=== PATIENT | female | born 1995 | race Caucasian/White ===

== ENCOUNTER 2017-04-05 12:54 | Emergency (ER) | payer BC ==
[~2017-04-05] VITALS: Ht 167.6 cm; Wt 82.0 kg
[~2017-04-05 12:54] MED LIST: BACTRIM DS1 TAB PO; BIRTH CONTROL PILL; CIPROFLOXACN500 MG PO; DIFLUCAN150 MG PO; FLAGYL500 MG OR; LORTAB 5-325 MG1 TAB PO; LOTRISONE CREAM15 G1 EX; NO MEDS; ORTHO EVRA TD; SPRINTEC 2828 DAY PO; TERAZOL 30.8 % VA; ULTRAM50 M1 OR; XULANE 150-35 M1 DIS TD; ZITHROMAX250 MG PO
[2017-04-05 13:41] LABS: URINE BILIRUBIN - DIPSTICK NEGATIVE (NEGATIVE); URINE BLOOD DIPSTICK SMALL (NEGATIVE); URINE COLOR YELLOW; URINE GLUCOSE - DIPSTICK NEGATIVE (NEGATIVE); URINE KETONE NEGATIVE (NEGATIVE); URINE LEUK ESTERASE TRACE (NEGATIVE); URINE NITRITE - DIPSTICK NEGATIVE (Negative); URINE PH 5.5 (4.5-8.0); URINE PROTEIN - DIPSTICK NEGATIVE (NEG-TRACE); URINE SPECIFIC GRAVITY >=1.030; URINE UROBILINOGEN - DIPSTICK 0.2 E.U./dL (0.2)
[2017-04-05 13:49] LABS: URINE CLARITY SLIGHT CLOUDY
[2017-04-05 13:50] LABS: URINE BACTERIA FEW hpf; URINE EPITHELIAL CELLS MODERATE EPI/hpf (0-FEW); URINE RBC 0-2 RBC/hpf (0-5); URINE WBC 0-2 WBC/hpf (0-5)
[2017-04-05] MEDS ORDERED: BACTRIM DS1 TAB PO (14:40)
[2017-04-05 14:45] VITALS: BP 129/74
== END 2017-04-05 14:45 | disposition home or self-care (01) | DRG 690 ==
LOC: ED 12:54
PROVIDERS: Emergency Medicine
DX: N39.0 Urinary tract infection, site not specified (principal); B37.3 Candidiasis of vulva and vagina

== ENCOUNTER 2017-04-27 21:37 | Emergency (ER) | payer BC ==
[~2017-04-27] VITALS: Ht 167.6 cm; Wt 86.0 kg
[2017-04-27 22:24] LABS: HEMATOCRIT 42.7 % (37.0-47.0); HEMOGLOBIN 12.9 g/dl (12.0-16.0); IMMATURE GRANULOCYTES 0.4 % (0.0-1.0); MEAN CELL VOLUME 68.8 fL CALC (80.0-100.0); MEAN CORPUSCULAR HGB 20.8 pG CALC (26.0-32.0); MEAN CORPUSCULAR HGB CONC 30.2 g/L CALC (32.0-36.0); NEUT# 4.35 thou/uL (2.00-7.15); RED BLOOD COUNT 6.21 mill/uL (4.20-5.60); RED CELL DISTRI WIDTH 17.4 % (11.5-15.5)
[2017-04-27 22:26] LABS: URINE BLOOD DIPSTICK NEGATIVE (NEGATIVE); URINE CLARITY CLEAR; URINE COLOR YELLOW; URINE GLUCOSE - DIPSTICK NEGATIVE (NEGATIVE); URINE KETONE NEGATIVE (NEGATIVE); URINE LEUK ESTERASE NEGATIVE (NEGATIVE); URINE NITRITE - DIPSTICK NEGATIVE (Negative); URINE PH 5.5 (4.5-8.0); URINE PROTEIN - DIPSTICK NEGATIVE (NEG-TRACE); URINE SPECIFIC GRAVITY >=1.030; URINE UROBILINOGEN - DIPSTICK 0.2 E.U./dL (0.2)
[2017-04-27 22:28] LABS: URINE BILIRUBIN - DIPSTICK NEGATIVE (NEGATIVE)
[2017-04-27 22:30] LABS: BARBITURATES NEGATIVE (NEGATIVE); COCAINE NEGATIVE (NEGATIVE); HCG SERUM/URINE (NEG/POS) NEGATIVE (NEGATIVE); METHADONE NEGATIVE (NEGATIVE); OXCYCODONE NEGATIVE (NEGATIVE); TETRAHYDROCANNABIONOL NEGATIVE (NEGATIVE); TRICYLIC ANTIDEPRESSANTS NEGATIVE (NEGATIVE)
[2017-04-27 23:11] LABS: ALBUMIN 4.1 g/dL (3.2-5.0); ALKALINE PHOSPHATASE 162 u/l (38-126); AMYLASE 61 u/l (30-110); ANION GAP 17 (6-22 (CALC)); BILIRUBIN, TOTAL 0.4 mg/dL (0.0-1.4); BUN 7 mg/dL (7-17); BUN/CREATININE RATIO 12 (12-20 (CALC)); CALCIUM 8.8 mg/dL (8.4-10.2); CARBON DIOXIDE 24 mmol/l (22-30); CHLORIDE 104 mmol/l (95-108); CREATININE 0.6 mg/dL (0.5-1.0); GFR > 60 ML/MIN (>=60 (CALC)); GFR FOR AFR.AMER. > 60 ML/MIN (>=60 (CALC)); GLUCOSE 87 mg/dL (65-105); LIPASE 50 u/l (23-300); POTASSIUM 4.1 mmol/l (3.5-5.1); SGOT/AST 92 u/l (14-36); SGPT/ALT 118 u/l (9-52); SODIUM 141 mmol/l (137-146); TOTAL PROTEIN 7.6 g/dL (6.3-8.2)
[2017-04-28] MEDS ORDERED: ZOFRAN ODT4 MG PO (00:16)
[2017-04-28 00:29] VITALS: BP 127/65
== END 2017-04-28 00:29 | disposition home or self-care (01) | DRG 866 ==
LOC: ED 21:37
PROVIDERS: Emergency Medicine
DX: B27.90 Infectious mononucleosis, unspecified without complication (principal)
CPT/HCPCS: Q9967

== ENCOUNTER 2017-07-15 14:28 | Emergency (ER) | payer BC ==
[~2017-07-15] VITALS: Ht 167.6 cm; Wt 84.1 kg
[~2017-07-15 14:28] MED LIST changes: +ZOFRAN ODT4 MG PO
[2017-07-15] MEDS ORDERED: XULANE 150-35 M1 DIS TOP (14:37)
[2017-07-15 15:22] LABS: URINE BILIRUBIN - DIPSTICK NEGATIVE (NEGATIVE); URINE BLOOD DIPSTICK TRACE-INTACT (NEGATIVE); URINE CLARITY CLEAR; URINE COLOR YELLOW; URINE GLUCOSE - DIPSTICK NEGATIVE (NEGATIVE); URINE KETONE TRACE mg/dL (NEGATIVE); URINE LEUK ESTERASE TRACE (NEGATIVE); URINE NITRITE - DIPSTICK NEGATIVE (Negative); URINE PH 6.5 (4.5-8.0); URINE PROTEIN - DIPSTICK TRACE mg/dL (NEG-TRACE); URINE UROBILINOGEN - DIPSTICK 0.2 E.U./dL (0.2)
[2017-07-15 15:39] LABS: HEMATOCRIT 37.6 % (37.0-47.0); HEMOGLOBIN 11.5 g/dl (12.0-16.0); IMMATURE GRANULOCYTES 0.4 % (0.0-1.0); MEAN CELL VOLUME 67.3 fL CALC (80.0-100.0); MEAN CORPUSCULAR HGB 20.6 pG CALC (26.0-32.0); MEAN CORPUSCULAR HGB CONC 30.6 g/L CALC (32.0-36.0); NEUT# 5.9 thou/uL (2.00-7.15); RED BLOOD COUNT 5.59 mill/uL (4.20-5.60); RED CELL DISTRI WIDTH 15.2 % (11.5-15.5)
[2017-07-15 16:28] LABS: ALKALINE PHOSPHATASE 75 u/l (38-126); AMYLASE 56 u/l (30-110); ANION GAP 14 (6-22 (CALC)); BILIRUBIN, TOTAL 0.3 mg/dL (0.0-1.4); BUN 10 mg/dL (7-17); BUN/CREATININE RATIO 17 (12-20 (CALC)); CARBON DIOXIDE 26 mmol/l (22-30); CHLORIDE 105 mmol/l (95-108); CREATININE 0.6 mg/dL (0.5-1.0); GFR > 60 ML/MIN (>=60 (CALC)); GFR FOR AFR.AMER. > 60 ML/MIN (>=60 (CALC)); GLUCOSE 93 mg/dL (65-105); LIPASE 56 u/l (23-300); POTASSIUM 4.2 mmol/l (3.5-5.1); SGOT/AST 19 u/l (14-36); SGPT/ALT 31 u/l (9-52); SODIUM 140 mmol/l (137-146); TOTAL PROTEIN 7.1 g/dL (6.3-8.2)
[2017-07-15] MEDS ORDERED: BACTRIM DS1 TAB PO (18:00)
[2017-07-15] MEDS ORDERED: TRAMADOL HYDROC50 MG PO (18:00)
[2017-07-15 18:23] VITALS: BP 119/60
== END 2017-07-15 18:29 | disposition home or self-care (01) | DRG 392 ==
LOC: ED 14:28
PROVIDERS: Emergency Medicine
DX: R10.11 Right upper quadrant pain (principal)
CPT/HCPCS: Q9967

== ENCOUNTER 2017-09-24 19:15 | Emergency (ER) | payer BC ==
[~2017-09-24] VITALS: Ht 167.6 cm; Wt 85.8 kg
[~2017-09-24 19:15] MED LIST changes: +TRAMADOL HYDROC50 MG PO; +XULANE 150-35 M1 DIS TOP
[2017-09-24 20:54] LABS: URINE BILIRUBIN - DIPSTICK NEGATIVE (NEGATIVE); URINE BLOOD DIPSTICK TRACE-INTACT (NEGATIVE); URINE COLOR YELLOW; URINE GLUCOSE - DIPSTICK NEGATIVE (NEGATIVE); URINE KETONE NEGATIVE (NEGATIVE); URINE LEUK ESTERASE NEGATIVE (NEGATIVE); URINE NITRITE - DIPSTICK NEGATIVE (Negative); URINE PH 5.5 (4.5-8.0); URINE PROTEIN - DIPSTICK NEGATIVE (NEG-TRACE); URINE SPECIFIC GRAVITY >=1.030; URINE UROBILINOGEN - DIPSTICK 0.2 E.U./dL (0.2)
[2017-09-24 20:55] LABS: URINE CLARITY CLEAR
[2017-09-24 21:23] VITALS: BP 146/86
== END 2017-09-24 21:20 | disposition home or self-care (01) | DRG 761 ==
LOC: ED 19:15
PROVIDERS: Emergency Medicine
DX: N94.6 Dysmenorrhea, unspecified (principal); R10.30 Lower abdominal pain, unspecified; R11.2 Nausea with vomiting, unspecified

== ENCOUNTER 2018-06-02 17:45 | Emergency (ER) | payer BC ==
[~2018-06-02] VITALS: Ht 167.6 cm; Wt 85.0 kg
[2018-06-02] MEDS ORDERED: ZESTRIL10 M1 PO (17:53)
[2018-06-02 18:12] LABS: URINE BILIRUBIN - DIPSTICK NEGATIVE (NEGATIVE); URINE BLOOD DIPSTICK TRACE-INTACT (NEGATIVE); URINE COLOR YELLOW; URINE GLUCOSE - DIPSTICK NEGATIVE (NEGATIVE); URINE KETONE NEGATIVE (NEGATIVE); URINE LEUK ESTERASE NEGATIVE (NEGATIVE); URINE NITRITE - DIPSTICK NEGATIVE (Negative); URINE PROTEIN - DIPSTICK NEGATIVE (NEG-TRACE); URINE SPECIFIC GRAVITY <=1.005; URINE UROBILINOGEN - DIPSTICK 0.2 E.U./dL (0.2)
[2018-06-02 18:13] LABS: URINE CLARITY CLEAR
[2018-06-02 18:52] LABS: HEMATOCRIT 38.3 % (37.0-47.0); HEMOGLOBIN 11.8 g/dl (12.0-16.0); IMMATURE GRANULOCYTES 0.4 % (0.0-5.0); MEAN CELL VOLUME 67.1 fL CALC (80.0-100.0); MEAN CORPUSCULAR HGB 20.7 pG CALC (26.0-32.0); MEAN CORPUSCULAR HGB CONC 30.8 g/L CALC (32.0-36.0); NEUT# 8.79 thou/uL (2.00-7.15); RED BLOOD COUNT 5.71 mill/uL (4.20-5.60); RED CELL DISTRI WIDTH 15.9 % (11.5-15.5)
[2018-06-02 19:08] LABS: ALBUMIN 4.2 g/dL (3.2-5.0); ALKALINE PHOSPHATASE 76 u/l (38-126); ANION GAP 15 (6-22 (CALC)); BILIRUBIN, TOTAL 0.3 mg/dL (0.0-1.4); BUN 7 mg/dL (7-17); BUN/CREATININE RATIO 16 (12-20 (CALC)); CARBON DIOXIDE 22 mmol/l (22-30); CHLORIDE 106 mmol/l (95-108); CREATININE 0.4 mg/dL (0.5-1.0); GFR > 60 ML/MIN (>=60 (CALC)); GFR FOR AFR.AMER. > 60 ML/MIN (>=60 (CALC)); SGOT/AST 19 u/l (14-36); SGPT/ALT 27 u/l (9-52); SODIUM 139 mmol/l (137-146); TOTAL PROTEIN 7.3 g/dL (6.3-8.2)
[2018-06-02] MEDS ORDERED: TRAMADOL HCL50 MG PO (22:50)
[2018-06-02] MEDS ORDERED: VOLTAREN - GENE75 MG PO (22:50)
[2018-06-02 23:10] VITALS: BP 118/68
== END 2018-06-02 23:10 | disposition home or self-care (01) | DRG 761 ==
LOC: ED 17:45
PROVIDERS: Emergency Medicine; Family Medicine
DX: N83.201 Unspecified ovarian cyst, right side (principal); S39.012A Strain of muscle, fascia and tendon of lower back, initial encounter; R10.31 Right lower quadrant pain; R30.0 Dysuria; R39.15 Urgency of urination
CPT/HCPCS: Q9967

== ENCOUNTER 2022-04-30 08:35 | Emergency (ER) | payer OTHER ==
[~2022-04-30] VITALS: Ht 167.6 cm; Wt 88.6 kg
[~2022-04-30 08:35] MED LIST changes: +TRAMADOL HCL50 MG PO; +VOLTAREN - GENE75 MG PO; +ZESTRIL10 M1 PO
[2022-04-30 08:45] VITALS: BP 178/100
[2022-04-30 08:48] VITALS: BP 154/99
[2022-04-30] MEDS ORDERED: TERBINAFINE1 % EX ×2 (08:49→09:11)
[2022-04-30] MEDS ORDERED: CARDIZEM60 MG PO (08:55)
[2022-04-30 09:00] VITALS: BP 153/99
[2022-04-30 09:16] VITALS: BP 131/90
== END 2022-04-30 09:19 | disposition home or self-care (01) ==
LOC: ED 08:35
DX: B35.9 Dermatophytosis, unspecified (principal); I10 Essential (primary) hypertension; D56.9 Thalassemia, unspecified

== ENCOUNTER 2022-05-13 13:49 | Emergency (ER) | payer OTHER ==
[~2022-05-13] VITALS: Ht 167.6 cm; Wt 86.3 kg
[~2022-05-13 13:49] MED LIST changes: +CARDIZEM60 MG PO; +TERBINAFINE1 % EX
[2022-05-13 14:04] VITALS: BP 148/92
[2022-05-13 14:15] VITALS: BP 125/89
[2022-05-13 14:15] LABS: URINE BILIRUBIN - DIPSTICK NEGATIVE (NEGATIVE); URINE BLOOD DIPSTICK SMALL (NEGATIVE); URINE COLOR YELLOW; URINE GLUCOSE - DIPSTICK NEGATIVE (NEGATIVE); URINE KETONE NEGATIVE (NEGATIVE); URINE LEUK ESTERASE TRACE (NEGATIVE); URINE PROTEIN - DIPSTICK NEGATIVE (NEG-TRACE); URINE UROBILINOGEN - DIPSTICK 0.2 E.U./dL (0.2)
[2022-05-13 14:16] LABS: URINE NITRITE - DIPSTICK NEGATIVE (Negative)
[2022-05-13 14:28] LABS: URINE SQUAMOUS EPITHELIAL CELL FEW EPI/hpf (0-FEW); URINE WBC 0-2 WBC/hpf (0-5)
[2022-05-13 14:30] VITALS: BP 122/80
[2022-05-13] MEDS ORDERED: MUPIROCIN2 % EX (14:42)
[2022-05-13] MEDS ORDERED: AMOX/K CLAV875 M1 PO (14:42)
[2022-05-13 14:45] VITALS: BP 124/85
[2022-05-13 15:00] VITALS: BP 131/81
[2022-05-13 15:01] VITALS: BP 131/81
== END 2022-05-13 15:21 | disposition home or self-care (01) ==
LOC: ED 13:49
PROVIDERS: Nurse Practitioner
DX: R30.0 Dysuria (principal); R04.0 Epistaxis; R59.0 Localized enlarged lymph nodes; I10 Essential (primary) hypertension; D56.9 Thalassemia, unspecified

== ENCOUNTER 2022-05-22 08:22 | Emergency (ER) | payer OTHER ==
[~2022-05-22] VITALS: Ht 167.6 cm; Wt 88.6 kg
[~2022-05-22 08:22] MED LIST changes: +AMOX/K CLAV875 M1 PO; +MUPIROCIN2 % EX
[2022-05-22 08:31] VITALS: BP 152/101
[2022-05-22 08:46] VITALS: BP 151/87
[2022-05-22] MEDS ORDERED: DIFLUCAN150 MG PO (08:51)
[2022-05-22 09:00] VITALS: BP 147/84
[2022-05-22 09:01] LABS: URINE BILIRUBIN - DIPSTICK NEGATIVE (NEGATIVE); URINE BLOOD DIPSTICK LARGE (NEGATIVE); URINE COLOR RED; URINE GLUCOSE - DIPSTICK NEGATIVE (NEGATIVE); URINE KETONE NEGATIVE (NEGATIVE); URINE LEUK ESTERASE NEGATIVE (NEGATIVE); URINE NITRITE - DIPSTICK NEGATIVE (Negative); URINE PH 5.5 (4.5-8.0); URINE PROTEIN - DIPSTICK TRACE mg/dL (NEG-TRACE); URINE SPECIFIC GRAVITY >=1.030; URINE UROBILINOGEN - DIPSTICK 0.2 E.U./dL (0.2)
[2022-05-22 09:02] LABS: URINE RBC >100 RBC/hpf (0-5); URINE SQUAMOUS EPITHELIAL CELL FEW EPI/hpf (0-FEW); URINE WBC 0-2 WBC/hpf (0-5)
[2022-05-22 09:15] VITALS: BP 152/98
== END 2022-05-22 09:24 | disposition home or self-care (01) ==
LOC: ED 08:22
PROVIDERS: Family Medicine
DX: N89.8 Other specified noninflammatory disorders of vagina (principal); I10 Essential (primary) hypertension; K76.0 Fatty (change of) liver, not elsewhere classified

== ENCOUNTER 2022-06-12 02:42 | Emergency (ER) | payer OTHER ==
[~2022-06-12] VITALS: Ht 167.6 cm; Wt 88.6 kg
[2022-06-12 02:50] VITALS: BP 152/95
[2022-06-12 02:52] VITALS: BP 153/92
[2022-06-12 03:00] VITALS: BP 144/91
[2022-06-12] MEDS ORDERED: PAXLOVID PO (03:28)
[2022-06-12 03:30] VITALS: BP 138/79
[2022-06-12 03:51] VITALS: BP 138/79
== END 2022-06-12 03:45 | disposition home or self-care (01) ==
LOC: ED 02:42
DX: U07.1 COVID-19 (principal); R50.9 Fever, unspecified; R52 Pain, unspecified; I10 Essential (primary) hypertension

== ENCOUNTER 2022-07-22 08:51 | Emergency (ER) | payer OTHER ==
[~2022-07-22] VITALS: Ht 167.6 cm; Wt 88.6 kg
[2022-07-22] VITALS (8 sets, daily range): BP systolic 130–145; BP diastolic 86–95
[~2022-07-22 08:51] MED LIST changes: +PAXLOVID PO
[2022-07-22 09:36] LABS: HEMATOCRIT 39.7 % (37.0-47.0); HEMOGLOBIN 12.3 g/dl (12.0-16.0); IMMATURE GRANULOCYTES 0.3 % (0.0-5.0); MEAN CELL VOLUME 66.6 fL CALC (80.0-100.0); MEAN CORPUSCULAR HGB 20.6 pG CALC (26.0-32.0); NEUT# 7.71 thou/uL (2.00-7.15); RED BLOOD COUNT 5.96 mill/uL (4.20-5.60); RED CELL DISTRI WIDTH 16.3 % (11.5-15.5)
[2022-07-22 09:39] LABS: ALBUMIN 4.4 g/dL (3.2-5.0); ALKALINE PHOSPHATASE 85 u/l (38-126); AMYLASE 76 u/l (30-110); ANION GAP 16 (6-22 (CALC)); BUN 7 mg/dL (7-17); BUN/CREATININE RATIO 12 (12-20 (CALC)); CARBON DIOXIDE 24 mmol/l (22-30); CHLORIDE 102 mmol/l (95-108); CREATININE 0.6 mg/dL (0.5-1.0); GFR FOR AFR.AMER. > 60 ML/MIN (>=60 (CALC)); GFR OTHER RACES > 60 ML/MIN (>=60 (CALC)); LIPASE 47 u/l (23-300); POTASSIUM 3.7 mmol/l (3.5-5.1); SGOT/AST 23 u/l (14-36); SODIUM 138 mmol/l (137-146)
[2022-07-22 09:47] LABS: URINE BILIRUBIN - DIPSTICK NEGATIVE (NEGATIVE); URINE BLOOD DIPSTICK SMALL (NEGATIVE); URINE COLOR YELLOW; URINE GLUCOSE - DIPSTICK NEGATIVE (NEGATIVE); URINE KETONE NEGATIVE (NEGATIVE); URINE LEUK ESTERASE NEGATIVE (NEGATIVE); URINE PROTEIN - DIPSTICK NEGATIVE (NEG-TRACE); URINE SPECIFIC GRAVITY 1.025; URINE UROBILINOGEN - DIPSTICK 0.2 E.U./dL (0.2)
[2022-07-22 09:54] LABS: BILIRUBIN, TOTAL 0.4 mg/dL (0.0-1.4)
[2022-07-22 09:55] LABS: URINE NITRITE - DIPSTICK NEGATIVE (Negative)
[2022-07-22 10:01] LABS: URINE RBC 0-2 RBC/hpf (0-5)
[2022-07-22 10:02] LABS: URINE BACTERIA MODERATE hpf; URINE MUCUS FEW hpf (NONE-FEW); URINE SQUAMOUS EPITHELIAL CELL MODERATE EPI/hpf (0-FEW)
[2022-07-22] MEDS ORDERED: MIRALAX17 GM PO (12:45)
[2022-07-22] MEDS ORDERED: CEPHALEXIN500 MG PO (12:45)
== END 2022-07-22 13:12 | disposition home or self-care (01) ==
LOC: ED 08:51
PROVIDERS: Emergency Medicine
DX: N39.0 Urinary tract infection, site not specified (principal); M51.9 Unspecified thoracic, thoracolumbar and lumbosacral intervertebral disc disorder; K59.00 Constipation, unspecified; I10 Essential (primary) hypertension; K76.0 Fatty (change of) liver, not elsewhere classified; Z87.440 Personal history of urinary (tract) infections
CPT/HCPCS: Q9967

== ENCOUNTER 2022-08-06 13:50 | Emergency (ER) | payer OTHER ==
[~2022-08-06] VITALS: Ht 167.6 cm; Wt 88.0 kg
[2022-08-06] VITALS (15 sets, daily range): BP systolic 118–154; BP diastolic 68–93
[~2022-08-06 13:50] MED LIST changes: +CEPHALEXIN500 MG PO; +MIRALAX17 GM PO
[2022-08-06 14:33] LABS: HEMATOCRIT 41.2 % (37.0-47.0); HEMOGLOBIN 12.8 g/dl (12.0-16.0); IMMATURE GRANULOCYTES 0.1 % (0.0-5.0); MEAN CORPUSCULAR HGB 20.8 pG CALC (26.0-32.0); MEAN CORPUSCULAR HGB CONC 31.1 g/dL CAL (32.0-36.0); NEUT# 8.85 thou/uL (2.00-7.15); RED BLOOD COUNT 6.15 mill/uL (4.20-5.60)
[2022-08-06 14:58] LABS: ALBUMIN 4.6 g/dL (3.2-5.0); ALKALINE PHOSPHATASE 86 u/l (38-126); ANION GAP 17 (6-22 (CALC)); BUN 11 mg/dL (7-17); BUN/CREATININE RATIO 17 (12-20 (CALC)); CARBON DIOXIDE 22 mmol/l (22-30); CHLORIDE 104 mmol/l (95-108); CREATININE 0.6 mg/dL (0.5-1.0); GFR FOR AFR.AMER. > 60 ML/MIN (>=60 (CALC)); GFR OTHER RACES > 60 ML/MIN (>=60 (CALC)); LIPASE 45 u/l (23-300); POTASSIUM 3.8 mmol/l (3.5-5.1); SGOT/AST 35 u/l (14-36); SODIUM 139 mmol/l (137-146); TOTAL PROTEIN 8.1 g/dL (6.3-8.2)
[2022-08-06 15:02] LABS: BILIRUBIN, TOTAL 0.7 mg/dL (0.0-1.4)
[2022-08-06 17:02] LABS: URINE BILIRUBIN - DIPSTICK NEGATIVE (NEGATIVE); URINE BLOOD DIPSTICK TRACE-INTACT (NEGATIVE); URINE COLOR YELLOW; URINE GLUCOSE - DIPSTICK NEGATIVE (NEGATIVE); URINE KETONE 15 mg/dL (NEGATIVE); URINE LEUK ESTERASE NEGATIVE (NEGATIVE); URINE PROTEIN - DIPSTICK NEGATIVE (NEG-TRACE); URINE SPECIFIC GRAVITY <=1.005; URINE UROBILINOGEN - DIPSTICK 0.2 E.U./dL (0.2)
[2022-08-06 17:05] LABS: URINE NITRITE - DIPSTICK NEGATIVE (Negative)
[2022-08-06] MEDS ORDERED: ONDANSETRON4 MG PO (17:34)
[2022-08-06] MEDS ORDERED: NAPROXEN500 MG PO (17:34)
[2022-08-06] MEDS ORDERED: ULTRAM50 M1 PO (17:34)
== END 2022-08-06 17:50 | disposition home or self-care (01) ==
LOC: ED 13:50
PROVIDERS: Family Medicine
DX: R10.84 Generalized abdominal pain (principal); I10 Essential (primary) hypertension; K76.0 Fatty (change of) liver, not elsewhere classified
CPT/HCPCS: Q9967

== ENCOUNTER 2022-09-20 12:31 | Emergency (ER) | payer OTHER ==
[~2022-09-20] VITALS: Ht 167.6 cm; Wt 88.4 kg
[~2022-09-20 12:31] MED LIST changes: +NAPROXEN500 MG PO; +ONDANSETRON4 MG PO; +ULTRAM50 M1 PO
[2022-09-20 12:36] VITALS: BP 150/92
[2022-09-20 12:52] VITALS: BP 143/90
[2022-09-20 13:00] VITALS: BP 132/84
[2022-09-20 13:20] LABS: HEMATOCRIT 39.6 % (37.0-47.0); HEMOGLOBIN 12.2 g/dl (12.0-16.0); IMMATURE GRANULOCYTES 0.1 % (0.0-5.0); MEAN CORPUSCULAR HGB 20.6 pG CALC (26.0-32.0); MEAN CORPUSCULAR HGB CONC 30.8 g/dL CAL (32.0-36.0); NEUT# 7.99 thou/uL (2.00-7.15); RED BLOOD COUNT 5.91 mill/uL (4.20-5.60); RED CELL DISTRI WIDTH 16.3 % (11.5-15.5)
[2022-09-20 13:24] LABS: URINE BILIRUBIN - DIPSTICK NEGATIVE (NEGATIVE); URINE BLOOD DIPSTICK MODERATE (NEGATIVE); URINE COLOR YELLOW; URINE GLUCOSE - DIPSTICK NEGATIVE (NEGATIVE); URINE KETONE NEGATIVE (NEGATIVE); URINE LEUK ESTERASE TRACE (NEGATIVE); URINE NITRITE - DIPSTICK NEGATIVE (Negative); URINE PROTEIN - DIPSTICK NEGATIVE (NEG-TRACE); URINE SPECIFIC GRAVITY 1.025; URINE UROBILINOGEN - DIPSTICK 0.2 E.U./dL (0.2)
[2022-09-20 13:25] LABS: ALBUMIN 4.4 g/dL (3.2-5.0); ALKALINE PHOSPHATASE 77 u/l (38-126); ANION GAP 10 (6-22 (CALC)); BILIRUBIN, TOTAL 0.3 mg/dL (0.0-1.4); BUN 10 mg/dL (7-17); BUN/CREATININE RATIO 14 (12-20 (CALC)); CARBON DIOXIDE 28 mmol/l (22-30); CHLORIDE 105 mmol/l (95-108); CREATININE 0.7 mg/dL (0.5-1.0); GFR FOR AFR.AMER. > 60 ML/MIN (>=60 (CALC)); GFR OTHER RACES > 60 ML/MIN (>=60 (CALC)); POTASSIUM 3.7 mmol/l (3.5-5.1); SGOT/AST 29 u/l (14-36); SODIUM 139 mmol/l (137-146); TOTAL PROTEIN 7.8 g/dL (6.3-8.2)
[2022-09-20 13:33] LABS: URINE BACTERIA FEW hpf; URINE SQUAMOUS EPITHELIAL CELL FEW EPI/hpf (0-FEW)
[2022-09-20] MEDS ORDERED: OMNI-PAC300 MG PO (13:49)
[2022-09-20] MEDS ORDERED: FLEXERIL5 M1 PO (13:49)
[2022-09-20 14:04] VITALS: BP 132/84
== END 2022-09-20 14:15 | disposition home or self-care (01) ==
LOC: ED 12:31
PROVIDERS: Family Medicine
DX: N39.0 Urinary tract infection, site not specified (principal); I10 Essential (primary) hypertension; K76.0 Fatty (change of) liver, not elsewhere classified

== ENCOUNTER 2022-10-03 08:40 | Emergency (ER) | payer OTHER ==
[~2022-10-03] VITALS: Ht 167.6 cm; Wt 85.0 kg
[~2022-10-03 08:40] MED LIST changes: +FLEXERIL5 M1 PO; +OMNI-PAC300 MG PO
[2022-10-03 08:46] VITALS: BP 144/88
[2022-10-03] MEDS ORDERED: DIFLUCAN150 MG PO (09:02)
[2022-10-03 09:06] VITALS: BP 144/88
== END 2022-10-03 09:14 | disposition home or self-care (01) ==
LOC: ED 08:40
DX: B37.31 Acute candidiasis of vulva and vagina (principal); I10 Essential (primary) hypertension; K76.0 Fatty (change of) liver, not elsewhere classified

== ENCOUNTER 2022-10-17 14:54 | Emergency (ER) | payer OTHER ==
[2022-10-17] VITALS (10 sets, daily range): BP systolic 133–160; BP diastolic 74–93
[~2022-10-17] VITALS: Ht 167.6 cm; Wt 86.1 kg
[2022-10-17 19:01] LABS: HEMATOCRIT 39.4 % (37.0-47.0); HEMOGLOBIN 12.4 g/dl (12.0-16.0); IMMATURE GRANULOCYTES 0.1 % (0.0-5.0); MEAN CELL VOLUME 67.4 fL CALC (80.0-100.0); MEAN CORPUSCULAR HGB 21.2 pG CALC (26.0-32.0); MEAN CORPUSCULAR HGB CONC 31.5 g/dL CAL (32.0-36.0); NEUT# 4.59 thou/uL (2.00-7.15); RED BLOOD COUNT 5.85 mill/uL (4.20-5.60); RED CELL DISTRI WIDTH 16.6 % (11.5-15.5)
[2022-10-17 19:14] LABS: ALBUMIN 4.4 g/dL (3.2-5.0); ALKALINE PHOSPHATASE 91 u/l (38-126); ANION GAP 12 (6-22 (CALC)); BILIRUBIN, TOTAL 0.2 mg/dL (0.0-1.4); BUN 4 mg/dL (7-17); BUN/CREATININE RATIO 8 (12-20 (CALC)); CARBON DIOXIDE 24 mmol/l (22-30); CHLORIDE 109 mmol/l (95-108); CPK 39 u/l (30-165); CREATININE 0.6 mg/dL (0.5-1.0); GFR FOR AFR.AMER. > 60 ML/MIN (>=60 (CALC)); GFR OTHER RACES > 60 ML/MIN (>=60 (CALC)); POTASSIUM 3.8 mmol/l (3.5-5.1); SGOT/AST 25 u/l (14-36); SODIUM 141 mmol/l (137-146); TOTAL PROTEIN 7.6 g/dL (6.3-8.2)
[2022-10-17] MEDS ORDERED: VOLTAREN75 MG PO (21:17)
== END 2022-10-17 21:59 | disposition home or self-care (01) ==
LOC: ED 14:54
PROVIDERS: Family Medicine
DX: M54.12 Radiculopathy, cervical region (principal); M25.512 Pain in left shoulder; I10 Essential (primary) hypertension; K76.0 Fatty (change of) liver, not elsewhere classified

== ENCOUNTER 2022-11-18 07:30 | Day surgery (SDC) | payer OTHER ==
[~2022-11-18 07:30] MED LIST changes: +VOLTAREN75 MG PO
[2022-11-18 10:19] VITALS: BP 133/83
== END 2022-11-18 10:30 | disposition home or self-care (01) ==
LOC: ORM 07:30
PROVIDERS: ATTEND Physical Medicine & Rehabilitation
DX: M54.16 Radiculopathy, lumbar region (principal); M51.26 Other intervertebral disc displacement, lumbar region; Z01.818 Encounter for other preprocedural examination; Z11.52 Encounter for screening for COVID-19
CPT/HCPCS: J1100; Q9967

== ENCOUNTER 2023-01-09 10:42 | Emergency (ER) | payer OTHER ==
[2023-01-09] VITALS (7 sets, daily range): BP systolic 126–146; BP diastolic 72–89
[~2023-01-09] VITALS: Ht 167.6 cm; Wt 85.2 kg
[2023-01-09 11:20] LABS: URINE BILIRUBIN - DIPSTICK NEGATIVE (NEGATIVE); URINE BLOOD DIPSTICK MODERATE (NEGATIVE); URINE COLOR YELLOW; URINE GLUCOSE - DIPSTICK NEGATIVE (NEGATIVE); URINE KETONE NEGATIVE (NEGATIVE); URINE LEUK ESTERASE TRACE (NEGATIVE); URINE PROTEIN - DIPSTICK NEGATIVE (NEG-TRACE); URINE SPECIFIC GRAVITY >=1.030; URINE UROBILINOGEN - DIPSTICK 0.2 E.U./dL (0.2)
[2023-01-09 11:23] LABS: URINE NITRITE - DIPSTICK NEGATIVE (Negative)
[2023-01-09 11:25] LABS: HCG SERUM/URINE (NEG/POS) NEGATIVE (NEGATIVE)
[2023-01-09 11:33] LABS: URINE BACTERIA FEW hpf; URINE SQUAMOUS EPITHELIAL CELL FEW EPI/hpf (0-FEW)
[2023-01-09 11:56] LABS: BASO% 0.3 % (0-3); EOS% 0.5 % (0-8); HEMATOCRIT 38.8 % (37.0-47.0); HEMOGLOBIN 11.9 g/dl (12.0-16.0); IMMATURE GRANULOCYTES 0.2 % (0.0-5.0); LYMPH% 21.5 % (15-41); MEAN CELL VOLUME 67.5 fL CALC (80.0-100.0); MEAN CORPUSCULAR HGB 20.7 pG CALC (26.0-32.0); MEAN CORPUSCULAR HGB CONC 30.7 g/dL CAL (32.0-36.0); MONO% 4.1 % (2-13); NEUT# 6.95 thou/uL (2.00-7.15); NEUT% 73.4 % (42-76); RED BLOOD COUNT 5.75 mill/uL (4.20-5.60); RED CELL DISTRI WIDTH 15.4 % (11.5-15.5)
[2023-01-09 12:10] LABS: ALBUMIN 4.1 g/dL (3.2-5.0); ALKALINE PHOSPHATASE 73 u/l (38-126); ANION GAP 11 (6-22 (CALC)); BILIRUBIN, TOTAL 0.2 mg/dL (0.02-1.3); BUN 12 mg/dL (7-17); BUN/CREATININE RATIO 18 (12-20 (CALC)); CARBON DIOXIDE 25 mmol/l (22-30); CHLORIDE 106 mmol/l (95-108); CREATININE 0.7 mg/dL (0.5-1.0); GFR FOR AFR.AMER. > 60 ML/MIN (>=60 (CALC)); GFR OTHER RACES > 60 ML/MIN (>=60 (CALC)); SGOT/AST 25 u/l (14-36); SODIUM 138 mmol/l (137-146); TOTAL PROTEIN 7.1 g/dL (6.3-8.2)
[2023-01-09] MEDS ORDERED: LEVSIN0.125 M1 PO (13:16)
[2023-01-09] MEDS ORDERED: OMNICEF300 M1 PO (13:16)
[2023-01-09] MEDS ORDERED: ZOFRAN4 MG/TAB PO (13:16)
[2023-01-09] MEDS ORDERED: DIFLUCAN150 MG PO (13:16)
== END 2023-01-09 13:37 | disposition home or self-care (01) ==
LOC: ED 10:42
PROVIDERS: Family Medicine
DX: R10.84 Generalized abdominal pain (principal); R31.9 Hematuria, unspecified; I10 Essential (primary) hypertension; D56.9 Thalassemia, unspecified; K76.0 Fatty (change of) liver, not elsewhere classified; Z20.822 Contact with and (suspected) exposure to COVID-19

== ENCOUNTER 2023-01-20 21:22 | Emergency (ER) | payer OTHER ==
[~2023-01-20] VITALS: Ht 167.6 cm; Wt 80.7 kg
[~2023-01-20 21:22] MED LIST changes: +LEVSIN0.125 M1 PO; +OMNICEF300 M1 PO; +ZOFRAN4 MG/TAB PO
[2023-01-20 23:32] LABS: URINE BILIRUBIN - DIPSTICK NEGATIVE (NEGATIVE); URINE BLOOD DIPSTICK MODERATE (NEGATIVE); URINE COLOR YELLOW; URINE GLUCOSE - DIPSTICK NEGATIVE (NEGATIVE); URINE KETONE 15 mg/dL (NEGATIVE); URINE LEUK ESTERASE NEGATIVE (NEGATIVE); URINE PH 5.5 (4.5-8.0); URINE PROTEIN - DIPSTICK TRACE mg/dL (NEG-TRACE); URINE SPECIFIC GRAVITY >=1.030; URINE UROBILINOGEN - DIPSTICK 0.2 E.U./dL (0.2)
[2023-01-20 23:33] LABS: URINE NITRITE - DIPSTICK NEGATIVE (Negative)
[2023-01-20 23:49] LABS: URINE CALCIUM OXALATE CRYSTALS MODERATE lpf; URINE SQUAMOUS EPITHELIAL CELL FEW EPI/hpf (0-FEW)
[2023-01-21 00:35] VITALS: BP 128/78
== END 2023-01-21 00:35 | disposition home or self-care (01) ==
LOC: ED 21:22
PROVIDERS: Family Medicine
DX: S00.11XA Contusion of right eyelid and periocular area, initial encounter (principal); S63.610A Unspecified sprain of right index finger, initial encounter; S60.410A Abrasion of right index finger, initial encounter; I10 Essential (primary) hypertension; K76.0 Fatty (change of) liver, not elsewhere classified; Y00.XXXA Assault by blunt object, initial encounter; Y92.009 Unspecified place in unspecified non-institutional (private) residence as the place of occurrence of the external cause

== ENCOUNTER 2023-02-08 15:03 | Emergency (ER) | payer OTHER ==
[~2023-02-08] VITALS: Ht 167.6 cm; Wt 85.0 kg
[2023-02-08 16:37] LABS: URINE BILIRUBIN - DIPSTICK NEGATIVE (NEGATIVE); URINE BLOOD DIPSTICK LARGE (NEGATIVE); URINE COLOR YELLOW; URINE GLUCOSE - DIPSTICK NEGATIVE (NEGATIVE); URINE KETONE NEGATIVE (NEGATIVE); URINE LEUK ESTERASE NEGATIVE (NEGATIVE); URINE PH 5.5 (4.5-8.0); URINE PROTEIN - DIPSTICK NEGATIVE (NEG-TRACE); URINE SPECIFIC GRAVITY >=1.030; URINE UROBILINOGEN - DIPSTICK 0.2 E.U./dL (0.2)
[2023-02-08 16:39] LABS: URINE NITRITE - DIPSTICK NEGATIVE (Negative)
[2023-02-08 16:48] LABS: URINE MUCUS FEW hpf (NONE-FEW); URINE SQUAMOUS EPITHELIAL CELL FEW EPI/hpf (0-FEW)
[2023-02-08 16:53] LABS: BASO% 0.2 % (0-3); HEMATOCRIT 36.4 % (37.0-47.0); IMMATURE GRANULOCYTES 0.2 % (0.0-5.0); LYMPH% 23.5 % (15-41); MEAN CELL VOLUME 67.4 fL CALC (80.0-100.0); MEAN CORPUSCULAR HGB 20.4 pG CALC (26.0-32.0); MEAN CORPUSCULAR HGB CONC 30.2 g/dL CAL (32.0-36.0); MONO% 5.5 % (2-13); NEUT# 6.04 thou/uL (2.00-7.15); NEUT% 69.6 % (42-76); RED BLOOD COUNT 5.4 mill/uL (4.20-5.60); RED CELL DISTRI WIDTH 15.5 % (11.5-15.5)
[2023-02-08 17:08] LABS: ALKALINE PHOSPHATASE 64 u/l (38-126); ANION GAP 11 (6-22 (CALC)); BUN 11 mg/dL (7-17); BUN/CREATININE RATIO 19 (12-20 (CALC)); CARBON DIOXIDE 26 mmol/l (22-30); CHLORIDE 106 mmol/l (95-108); CREATININE 0.6 mg/dL (0.5-1.0); GFR FOR AFR.AMER. > 60 ML/MIN (>=60 (CALC)); GFR OTHER RACES > 60 ML/MIN (>=60 (CALC)); LIPASE 46 u/l (23-300); POTASSIUM 3.8 mmol/l (3.5-5.1); SGOT/AST 22 u/l (14-36); SODIUM 139 mmol/l (137-146); TOTAL PROTEIN 7.1 g/dL (6.3-8.2)
[2023-02-08 21:14] VITALS: BP 147/91
[2023-02-08] MEDS ORDERED: KEFLEX500 MG PO (23:10)
[2023-02-08] MEDS ORDERED: DIFLUCAN150 MG PO (23:12)
== END 2023-02-08 23:52 | disposition home or self-care (01) ==
LOC: ED 15:03
PROVIDERS: Family Medicine
DX: R10.2 Pelvic and perineal pain (principal); N39.0 Urinary tract infection, site not specified; I10 Essential (primary) hypertension; K76.0 Fatty (change of) liver, not elsewhere classified; D56.9 Thalassemia, unspecified
CPT/HCPCS: Q9967

== ENCOUNTER 2023-03-03 07:51 | Day surgery (SDC) | payer OTHER ==
[~2023-03-03] VITALS: Ht 167.6 cm; Wt 83.9 kg
[~2023-03-03 07:51] MED LIST changes: +KEFLEX500 MG PO
[2023-03-03 08:17] LABS: HCG SERUM/URINE (NEG/POS) NEGATIVE (NEGATIVE)
[2023-03-03 11:51] VITALS: BP 155/85
== END 2023-03-03 10:56 | disposition home or self-care (01) ==
LOC: ORM 07:51
PROVIDERS: ATTEND Physical Medicine & Rehabilitation Pain Medicine
DX: G89.4 Chronic pain syndrome (principal); M54.16 Radiculopathy, lumbar region; M51.36 Other intervertebral disc degeneration, lumbar region; M62.830 Muscle spasm of back; M51.26 Other intervertebral disc displacement, lumbar region
CPT/HCPCS: J1100; Q9967

== ENCOUNTER 2023-03-07 09:28 | Emergency (ER) | payer OTHER ==
[~2023-03-07] VITALS: Ht 167.6 cm; Wt 81.6 kg
[2023-03-07] VITALS (9 sets, daily range): BP systolic 126–150; BP diastolic 77–93
[2023-03-07 10:43] LABS: URINE BILIRUBIN - DIPSTICK NEGATIVE (NEGATIVE); URINE BLOOD DIPSTICK MODERATE (NEGATIVE); URINE COLOR YELLOW; URINE GLUCOSE - DIPSTICK NEGATIVE (NEGATIVE); URINE KETONE NEGATIVE (NEGATIVE); URINE LEUK ESTERASE NEGATIVE (NEGATIVE); URINE PROTEIN - DIPSTICK NEGATIVE (NEG-TRACE); URINE SPECIFIC GRAVITY >=1.030; URINE UROBILINOGEN - DIPSTICK 0.2 E.U./dL (0.2)
[2023-03-07 10:51] LABS: URINE NITRITE - DIPSTICK NEGATIVE (Negative)
[2023-03-07 10:53] LABS: URINE BACTERIA RARE hpf; URINE SQUAMOUS EPITHELIAL CELL FEW EPI/hpf (0-FEW)
[2023-03-07] MEDS ORDERED: ZOFRAN4 MG/TAB PO (16:04)
== END 2023-03-07 16:45 | disposition home or self-care (01) ==
LOC: ED 09:28
PROVIDERS: Family Medicine
DX: R10.84 Generalized abdominal pain (principal); I10 Essential (primary) hypertension; K76.0 Fatty (change of) liver, not elsewhere classified

== ENCOUNTER 2023-03-21 11:30 | Emergency (ER) | payer OTHER ==
[~2023-03-21] VITALS: Ht 167.6 cm; Wt 83.9 kg
[2023-03-21 11:58] VITALS: BP 141/86
[2023-03-21 12:00] VITALS: BP 131/92
[2023-03-21 12:16] VITALS: BP 143/86
[2023-03-21] MEDS ORDERED: DECADRON4 MG PO (12:17)
[2023-03-21] MEDS ORDERED: FLEXERIL5 M1 PO (12:17)
[2023-03-21] MEDS ORDERED: TRAMADOL HYDROC50 M1 PO (12:17)
[2023-03-21 12:30] VITALS: BP 139/85
[2023-03-21 12:45] VITALS: BP 136/83
[2023-03-21 13:00] VITALS: BP 127/85
== END 2023-03-21 13:15 | disposition home or self-care (01) ==
LOC: ED 11:30
DX: M25.551 Pain in right hip (principal); I10 Essential (primary) hypertension; K76.0 Fatty (change of) liver, not elsewhere classified; D56.9 Thalassemia, unspecified

== ENCOUNTER 2023-04-21 06:49 | Day surgery (SDC) | payer OTHER ==
[~2023-04-21] VITALS: Ht 167.6 cm; Wt 86.2 kg
[~2023-04-21 06:49] MED LIST changes: +DECADRON4 MG PO; +TRAMADOL HYDROC50 M1 PO
[2023-04-21] MEDS ORDERED: LOSARTAN/HCT1 TA1 PO (07:10)
[2023-04-21] MEDS ORDERED: PREGABALIN50 MG PO (07:11)
[2023-04-21] MEDS ORDERED: XULANE 150-35 M1 DIS TOP (07:14)
[2023-04-21] MEDS ORDERED: FLEXERIL5 M1 PO (07:15)
[2023-04-21 09:39] VITALS: BP 157/93
== END 2023-04-21 08:59 ==
LOC: ORM 06:49
PROVIDERS: ATTEND Physical Medicine & Rehabilitation
DX: G89.4 Chronic pain syndrome (principal); M54.16 Radiculopathy, lumbar region; M62.830 Muscle spasm of back; T78.40XA Allergy, unspecified, initial encounter; R06.00 Dyspnea, unspecified; R21 Rash and other nonspecific skin eruption; R13.10 Dysphagia, unspecified; L50.0 Allergic urticaria; T50.8X5A Adverse effect of diagnostic agents, initial encounter; Y92.234 Operating room of hospital as the place of occurrence of the external cause; I10 Essential (primary) hypertension
CPT/HCPCS: A9585; J1100

== ENCOUNTER 2023-04-21 08:59 | Emergency (ER) | payer OTHER ==
[~2023-04-21] VITALS: Ht 167.6 cm; Wt 86.2 kg
[2023-04-21] VITALS (10 sets, daily range): BP systolic 101–148; BP diastolic 53–95
[~2023-04-21 08:59] MED LIST changes: +LOSARTAN/HCT1 TA1 PO; +PREGABALIN50 MG PO
== END 2023-04-21 11:59 | disposition home or self-care (01) ==
LOC: ED 08:59
DX: R13.10 Dysphagia, unspecified (principal); L50.0 Allergic urticaria; T50.8X5A Adverse effect of diagnostic agents, initial encounter; Y92.234 Operating room of hospital as the place of occurrence of the external cause; I10 Essential (primary) hypertension

== ENCOUNTER 2023-07-01 10:12 | Emergency (ER) | payer OTHER ==
[~2023-07-01] VITALS: Ht 167.6 cm; Wt 86.0 kg
[2023-07-01 10:37] LABS: URINE BLOOD DIPSTICK Moderate (NEGATIVE); URINE GLUCOSE - DIPSTICK Negative (NEGATIVE); URINE KETONE Negative (NEGATIVE); URINE LEUK ESTERASE Negative (NEGATIVE); URINE NITRITE - DIPSTICK Negative (Negative); URINE PH 5.5 (4.5-8.0); URINE PROTEIN - DIPSTICK 30 mg/dL (NEG-TRACE); URINE SPECIFIC GRAVITY >=1.030; URINE UROBILINOGEN - DIPSTICK 0.2 E.U./dL (0.2)
[2023-07-01 10:45] LABS: URINE COLOR Yellow
[2023-07-01 10:48] LABS: URINE BACTERIA MANY hpf; URINE MUCUS MODERATE hpf (NONE-FEW); URINE SQUAMOUS EPITHELIAL CELL FEW EPI/hpf (0-FEW)
[2023-07-01] MEDS ORDERED: ZOFRAN4 MG/TAB PO (11:10)
[2023-07-01] MEDS ORDERED: OMNI-PAC300 MG PO (11:10)
[2023-07-01 11:25] VITALS: BP 130/85
[2023-07-01 11:40] VITALS: BP 130/855
[2023-07-01] MEDS ORDERED: DIFLUCAN150 MG PO (11:42)
== END 2023-07-01 11:44 | disposition home or self-care (01) ==
LOC: ED 10:12
PROVIDERS: Family Medicine
DX: N39.0 Urinary tract infection, site not specified (principal); I10 Essential (primary) hypertension

== ENCOUNTER 2023-08-06 08:30 | Emergency (ER) | payer OTHER ==
[~2023-08-06] VITALS: Ht 167.6 cm; Wt 88.0 kg
[2023-08-06 08:34] VITALS: BP 134/89
[2023-08-06 08:45] VITALS: BP 156/91
[2023-08-06 09:00] VITALS: BP 132/82
[2023-08-06 09:06] LABS: URINE BILIRUBIN - DIPSTICK Negative (NEGATIVE); URINE BLOOD DIPSTICK Moderate (NEGATIVE); URINE GLUCOSE - DIPSTICK Negative (NEGATIVE); URINE KETONE Negative (NEGATIVE); URINE LEUK ESTERASE Negative (NEGATIVE); URINE NITRITE - DIPSTICK Negative (Negative); URINE PROTEIN - DIPSTICK Trace mg/dL (NEG-TRACE); URINE SPECIFIC GRAVITY >=1.030; URINE UROBILINOGEN - DIPSTICK 0.2 E.U./dL (0.2)
[2023-08-06 09:07] LABS: URINE COLOR Yellow
[2023-08-06 09:20] VITALS: BP 132/85
[2023-08-06 09:24] LABS: URINE SQUAMOUS EPITHELIAL CELL FEW EPI/hpf (0-FEW); URINE WBC 0-2 WBC/hpf (0-5)
[2023-08-06 09:27] LABS: URINE CALCIUM OXALATE CRYSTALS MODERATE lpf
[2023-08-06 09:28] LABS: URINE MUCUS FEW hpf (NONE-FEW)
[2023-08-06 09:29] LABS: URINE BACTERIA MODERATE hpf
[2023-08-06] MEDS ORDERED: DIFLUCAN150 MG PO (09:34)
[2023-08-06] MEDS ORDERED: ZOFRAN4 MG/TAB PO (09:34)
[2023-08-06] MEDS ORDERED: CEFDINIR300 MG PO (09:34)
[2023-08-06 09:40] VITALS: BP 129/79
== END 2023-08-06 09:44 | disposition home or self-care (01) ==
LOC: ED 08:30
PROVIDERS: Family Medicine
DX: N39.0 Urinary tract infection, site not specified (principal); B37.31 Acute candidiasis of vulva and vagina; I10 Essential (primary) hypertension; E66.9 Obesity, unspecified; D56.9 Thalassemia, unspecified; K76.0 Fatty (change of) liver, not elsewhere classified; Z87.440 Personal history of urinary (tract) infections

== ENCOUNTER 2024-12-20 08:13 | Emergency (ER) | payer MEDICAID ==
[~2024-12-20] VITALS: Ht 167.6 cm; Wt 90.9 kg
[2024-12-20] VITALS (15 sets, daily range): BP systolic 112–144; BP diastolic 68–96
[~2024-12-20 08:13] MED LIST changes: +CEFDINIR300 MG PO; +METHOCARBAMOL500 MG PO; +PERCOCET 5/325M1 TAB PO
[2024-12-20] MEDS ORDERED: LORazepam 2 MG/ML IM ONE (08:30)
[2024-12-20] MEDS ORDERED: MIDAZOLAM HCL 2 MG/2 ML VIAL IM ONE (08:35)
[2024-12-20 09:20] LABS: ALBUMIN 4.6 g/dL (3.2-5.0); CREATININE 0.5 mg/dL (0.5-1.0); POTASSIUM 3.6 mmol/l (3.5-5.1); TOTAL PROTEIN 8.3 g/dL (6.3-8.2)
[2024-12-20 09:21] LABS: BILIRUBIN, TOTAL 0.7 mg/dL (0.02-1.3)
[2024-12-20 09:23] LABS: BASO% 0.2 % (0-3); EOS% 0.1 % (0-8); HEMATOCRIT 40.7 % (37.0-47.0); HEMOGLOBIN 12.8 g/dl (12.0-16.0); IMMATURE GRANULOCYTES 0.3 % (0.0-5.0); LYMPH% 15.9 % (15-41); MEAN CELL VOLUME 65.9 fL CALC (80.0-100.0); MEAN CORPUSCULAR HGB 20.7 pG CALC (26.0-32.0); MEAN CORPUSCULAR HGB CONC 31.4 g/dL CAL (32.0-36.0); NEUT# 11.93 thou/uL (2.00-7.15); NEUT% 78.5 % (42-76); RED BLOOD COUNT 6.18 mill/uL (4.20-5.60); RED CELL DISTRI WIDTH 15.6 % (11.5-15.5)
[2024-12-20 09:36] LABS: URINE BLOOD DIPSTICK Moderate (NEGATIVE); URINE GLUCOSE - DIPSTICK Negative (NEGATIVE); URINE KETONE 40 mg/dL (NEGATIVE); URINE LEUK ESTERASE Negative (NEGATIVE); URINE NITRITE - DIPSTICK Negative (Negative); URINE PROTEIN - DIPSTICK 30 mg/dL (NEG-TRACE); URINE UROBILINOGEN - DIPSTICK 0.2 E.U./dL (0.2)
[2024-12-20 09:37] LABS: URINE COLOR Yellow
[2024-12-20 09:51] LABS: URINE BACTERIA RARE hpf; URINE MUCUS FEW hpf (NONE-FEW); URINE WBC 0-2 WBC/hpf (0-5)
[2024-12-20] MEDS ORDERED: ACETAMINOPHEN 325 MG/TAB PO ONE (10:35)
[2024-12-20] MEDS ORDERED: XANAX0.5 MG PO (12:02)
== END 2024-12-20 12:20 | disposition home or self-care (01) ==
LOC: ED 08:13
PROVIDERS: Family Medicine
DX: F41.0 Panic disorder [episodic paroxysmal anxiety] (principal); K76.0 Fatty (change of) liver, not elsewhere classified; I10 Essential (primary) hypertension; Z90.49 Acquired absence of other specified parts of digestive tract